=== PATIENT | female | born 1965 ===

== ENCOUNTER 2017-08-31 16:08 | Emergency (ER) | payer SELFPAY ==
[~2017-08-31] VITALS: Ht 167.6 cm; Wt 57.6 kg
[2017-08-31] MEDS ORDERED: BLOOD PRESSURE (16:15)
[2017-08-31] MEDS ORDERED: [UNRECOGNIZED DRUG - CODE] PO (16:15)
--- NOTE | 2017-08-31 16:17 | ER Report ---
History and Physical Time Seen By MD: 16:16 Hx. of Stated Complaint: fall HPI/ROS 52-year-old female states she was in a local store Water Fell onto Her Left Side and Fell with Her Right Arm behind Her Back Striking Her Head No Loss of Consciousness His Pain a Global Headache Neck Pain Pain in Her Left Upper Extremity Allergies: Coded Allergies: No Known Drug Allergies (Unverified , 08/31/17) Home Meds Active Scripts Hydrocodone Bit/Acetaminophen (NORCO 5-325 TABLET) 1 Each Tablet, 1 EACH PO Q4- 6H Y for PAIN, #20 TAB Prov:HENRY YUSUF 08/31/17 Reported Medications [Blood Pressure] No Conflict Check 08/31/17 Acetaminophen With Codeine # 4 (TYLENOL WITH CODEINE #4 TABLET) 1 Each Tablet, 1 EACH PO BID, TAB 08/31/17 Past Medical/Surgical History 52 year old female fell at the hardware store. no loc does have a headache, cervical pain, left arm landed behind her back, pain left shoulder, left elbow left hand and wrist. takes htn med took am dose bp 220/125 Reviewed Nurses Notes: Yes Old Medical Records Reviewed: No Exposure to Second Hand Smoke?: Yes Hx Substance Use Disorder: No Hx Alcohol Use: Yes Family History of: HTN, Other Constitutional Vital Sign - Last 24 Hours 08/31/17 08/31/17 08/31/17 08/31/17 16:13 16:15 16:16 16:23 Temp 97.8 Pulse 102 102 Resp 16 B/P (MAP) 221/119 (153) 207/125 207/125 (152) Pulse Ox 94 O2 Delivery Room Air 08/31/17 08/31/17 08/31/17 08/31/17 16:30 16:38 16:53 17:00 Pulse 95 91 B/P (MAP) 198/109 (138) 204/105 (138) Pulse Ox 96 97 08/31/17 08/31/17 08/31/17 08/31/17 17:08 17:13 17:28 17:30 Pulse 78 79 B/P (MAP) 186/136 (153) Pulse Ox 92 100 98 08/31/17 08/31/17 08/31/17 08/31/17 17:35 17:50 18:00 18:05 Pulse 76 85 71 B/P (MAP) 161/103 (122) Pulse Ox 95 97 94 08/31/17 08/31/17 18:20 18:30 Pulse 72 B/P (MAP) 147/105 (119) Pulse Ox 95 Physical Exam 52 year old female alert anxious, heent head normocephalic trauma left parietal aspenct of the head no swelling , neck pain left side with palpation refusing c collar, tm no hemotympanum, dillon, throat non reddened, no jvd, hrr, lungs cta, abd soft pelvis intact, extremitis pain in left arm from shoulder to fingers , able to move fingers cycle specialist intact Medical Decision Making Data Points Result Diagram: 08/31/17 1640 08/31/17 1640 Laboratory Hematology Test 08/31/17 16:40 Red Blood Count 5.08 M/uL (4.17-5.56) Mean Corpuscular Volume 84.6 fL (80.0-96.0) Mean Corpuscular Hemoglobin 29.3 pg (26.0-33.0) Mean Corpuscular Hemoglobin Concent 34.6 g/dL (32.0-36.0) Red Cell Distribution Width 15.5 % (11.5-14.5) Mean Platelet Volume 8.3 fL (7.2-11.1) Neutrophils (%) (Auto) 60.2 % (39.4-72.5) Lymphocytes (%) (Auto) 28.3 % (17.6-49.6) Monocytes (%) (Auto) 6.1 % (4.1-12.4) Eosinophils (%) (Auto) 4.9 % (0.4-6.7) Basophils (%) (Auto) 0.5 % (0.3-1.4) Nucleated RBC Relative Count (auto) 0.1 /100WBC Neutrophils # (Auto) 4.7 K/uL (2.0-7.4) Lymphocytes # (Auto) 2.2 K/uL (1.3-3.6) Monocytes # (Auto) 0.5 K/uL (0.3-1.0) Eosinophils # (Auto) 0.4 K/uL (0.0-0.5) Basophils # (Auto) 0.0 K/uL (0.0-0.1) Nucleated RBC Absolute Count (auto) 0.00 K/uL Sodium Level 139 mmol/L (137-145) Potassium Level 3.5 mmol/L (3.5-5.0) Chloride Level 101 mmol/L (98-107) Carbon Dioxide Level 27 mmol/L (22-31) Blood Urea Nitrogen 13 mg/dl (7-18) Creatinine 0.90 mg/dl (0.52-1.04) Glomerular Filtration Rate Calc > 60.0 Random Glucose 83 mg/dl (75-110) Calcium Level 10.0 mg/dl (8.4-10.2) Total Bilirubin 0.8 mg/dl (0.2-1.3) Aspartate Amino Transf (AST/SGOT) 41 U/L (0-35) Alanine Aminotransferase (ALT/SGPT) 67 U/L (0-56) Alkaline Phosphatase 80 U/L (0-126) Total Protein 8.2 gm/dl (6.3-8.2) Albumin 4.5 g/dl (3.5-5.0) Chemistry Test 08/31/17 16:40 White Blood Count 7.7 k/uL (4.5-11.0) Red Blood Count 5.08 M/uL (4.17-5.56) Hemoglobin 14.9 g/dL (12.0-16.0) Hematocrit 43.0 % (34.0-47.0) Mean Corpuscular Volume 84.6 fL (80.0-96.0) Mean Corpuscular Hemoglobin 29.3 pg (26.0-33.0) Mean Corpuscular Hemoglobin Concent 34.6 g/dL (32.0-36.0) Red Cell Distribution Width 15.5 % (11.5-14.5) Platelet Count 228 K/uL (150-450) Mean Platelet Volume 8.3 fL (7.2-11.1) Neutrophils (%) (Auto) 60.2 % (39.4-72.5) Lymphocytes (%) (Auto) 28.3 % (17.6-49.6) Monocytes (%) (Auto) 6.1 % (4.1-12.4) Eosinophils (%) (Auto) 4.9 % (0.4-6.7) Basophils (%) (Auto) 0.5 % (0.3-1.4) Nucleated RBC Relative Count (auto) 0.1 /100WBC Neutrophils # (Auto) 4.7 K/uL (2.0-7.4) Lymphocytes # (Auto) 2.2 K/uL (1.3-3.6) Monocytes # (Auto) 0.5 K/uL (0.3-1.0) Eosinophils # (Auto) 0.4 K/uL (0.0-0.5) Basophils # (Auto) 0.0 K/uL (0.0-0.1) Nucleated RBC Absolute Count (auto) 0.00 K/uL Glomerular Filtration Rate Calc > 60.0 Calcium Level 10.0 mg/dl (8.4-10.2) Total Bilirubin 0.8 mg/dl (0.2-1.3) Aspartate Amino Transf (AST/SGOT) 41 U/L (0-35) Alanine Aminotransferase (ALT/SGPT) 67 U/L (0-56) Alkaline Phosphatase 80 U/L (0-126) Total Protein 8.2 gm/dl (6.3-8.2) Albumin 4.5 g/dl (3.5-5.0) ED Course/Re-evaluation ED Course possible ulnar styloid fracture refuses arm splint will wear wrist splint, and sling and have placed these . cms intact will see pcp in [place] for further care Re-evaluation feels better after pain med splinted bp 156/95. Decision to Disposition Date: Aug 31, 2017 Decision to Disposition Time: 18:38 Depart Departure Latest Vital Signs Vital Signs Date Time Temp Pulse Resp B/P (MAP) Pulse Ox O2 Delivery O2 Flow Rate FiO2 08/31/17 18:30 147/105 (119) 08/31/17 18:20 72 95 08/31/17 16:15 97.8 16 Room Air Impression: Primary Impression: Fall Additional Impression: Wrist fracture, left Condition: Improved Disposition: HOME OR SELF-CARE New Scripts Hydrocodone Bit/Acetaminophen (NORCO 5-325 TABLET) 1 Each Tablet 1 EACH PO Q4-6H Y for PAIN, #20 TAB Prov: HENRY YUSUF 08/31/17 Patient Instructions: Fall Prevention (ED), Wrist Fracture in Adults (DC) Additional Instructions: See her doctor in [place] for your blood pressure when you return wear wrist splint and sling can use ice on your wrist 20 minutes 4 times a day follow-up with your primary care physician in [place] for possible radial styloid fracture Problem Qualifiers HENRY YUSUF Aug 31, 2017 16:17
[2017-08-31] MEDS ORDERED: cloNIDine HCL 0.1 MG TAB PO ONE (16:25)
[2017-08-31] MEDS ORDERED: NS(*) 0.9% 1000 ML BAG 1,000 ML IV ONE (16:26)
[2017-08-31] MEDS ORDERED: ONDANSETRON 4 MG/2 ML VIAL IVP ONE (16:30)
[2017-08-31] MEDS ORDERED: fentaNYL CITR 100 MCG/2 ML AMP IVP ONE (16:30)
[2017-08-31 16:58] LABS: PLATELET COUNT, AUTOMATED 228 K/uL (150-450)
--- NOTE | 2017-08-31 17:05 | EKG ---
FACILITY: [facility] PATIENT NAME: ISABEL COTO : [id number] MR: [id number] V: [id number] EXAM DATE: ORDERING PHYSICIAN: HENRY YUSUF TECHNOLOGIST: KENTRELL Test Reason : HTN, FALL Blood Pressure : / mmHG Vent. Rate : 095 BPM Atrial Rate : 095 BPM P-R Int : 132 ms QRS Dur : 090 ms QT Int : 368 ms P-R-T Axes : 073 020 066 degrees QTc Int : 462 ms Normal sinus rhythm Normal ECG No previous ECGs available Confirmed by GARCIA JEAN BAPTISTE ([id number]) on 08/31/2017 5:25:47 PM Referred By: CORINNA Confirmed By:GARCIA JEAN BAPTISTE
--- NOTE | 2017-08-31 17:49 | RADIOLOGY IMAGING REPORT ---
FACILITY: [facility] PATIENT NAME: Candice Meadows : 1965 MR: [id number] V: [id number] EXAM DATE: ORDERING PHYSICIAN: HENRY YUSUF TECHNOLOGIST: Location: [facility] [place] Patient: Candice Meadows : 1965 Visit/Account:[id number] Date of Sevice: 08/31/2017 Exam type: SHOULDER MIN 2 VIEWS LEFT History: Follow-up left arm, pain from wrist to shoulder Comparison: None. Findings: Two views of the left shoulder reveal no evidence of acute fracture or dislocation or significant art hritic change. There are mild degenerative changes at the left AC joint. IMPRESSION: 1. No acute osteoarticular abnormality of the left shoulder seen Report Dictated By: Chrissie Goetz MD at 08/31/2017 5:44 PM Report E-Signed By: Chrissie Goetz MD at 08/31/2017 5:45 PM WSN:[email or web address]
--- NOTE | 2017-08-31 17:50 | RADIOLOGY IMAGING REPORT ---
FACILITY: [facility] PATIENT NAME: Candice Meadows : 1965 MR: [id number] V: [id number] EXAM DATE: ORDERING PHYSICIAN: HENRY YUSUF TECHNOLOGIST: Location: [facility] Patient: Candice Meadows : 1965 Visit/Account:[id number] Date of Sevice: 08/31/2017 Exam type: FOREARM LEFT History: Fell on left arm, pain from wrist to shoulder Comparison: None. Findings: Two views of the left forearm reveal no evidence of acute fracture or dislocation. There are mild de generative changes at the right radiocarpal joint IMPRESSION: 1. Mild degenerative changes at the right radiocarpal joint although no evidence of acute fracture-d islocation involving the right forearm Report Dictated By: Chrissie Goetz MD at 08/31/2017 5:45 PM Report E-Signed By: Chrissie Goetz MD at 08/31/2017 5:46 PM WSN:[email or web address]
--- NOTE | 2017-08-31 17:53 | RADIOLOGY IMAGING REPORT ---
FACILITY: [facility] PATIENT NAME: Candice Meadows : 1965 MR: [id number] V: [id number] EXAM DATE: ORDERING PHYSICIAN: HENRY YUSUF TECHNOLOGIST: Location: [facility] - [place] Patient: Candice Meadows : 1965 Visit/Account:[id number] Date of Sevice: 08/31/2017 Exam type: WRIST LEFT MIN 3 VIEW History: fall Comparison: None. Findings: Three views of the left wrist reveal mild degenerative changes at the left radiocarpal joint. There is no evidence of acute fracture or dislocation. IMPRESSION: 1. No evidence of acute fracture or dislocation involving the left wrist patient's symptoms persist follow-up imaging recommended to exclude an occult fracture Report Dictated By: Chrissie Goetz MD at 08/31/2017 5:46 PM Report E-Signed By: Chrissie Goetz MD at 08/31/2017 5:48 PM WSN:[email or web address]
--- NOTE | 2017-08-31 17:55 | RADIOLOGY IMAGING REPORT ---
FACILITY: [facility] [place] PATIENT NAME: Candice Meadows : 1965 MR: [id number] V: [id number] EXAM DATE: ORDERING PHYSICIAN: HENRY YUSUF TECHNOLOGIST: Location: [facility] [place] Patient: Candice Meadows : 1965 Visit/Account:[id number] Date of Sevice: 08/31/2017 Exam type: ELBOW 3 VIEW LEFT History: fall Comparison: None. Findings: Three views of the left elbow reveal no evidence of acute fracture dislocation or significant arthrit ic change. IMPRESSION: 1. No acute osteoarticular abnormality of the left elbow is seen Report Dictated By: Chrissie Goetz MD at 08/31/2017 5:50 PM Report E-Signed By: Chrissie Goetz MD at 08/31/2017 5:51 PM WSN:[email or web address]
--- NOTE | 2017-08-31 17:57 | RADIOLOGY IMAGING REPORT ---
FACILITY: [facility] PATIENT NAME: Candice Meadows : 1965 MR: [id number] V: [id number] EXAM DATE: ORDERING PHYSICIAN: HENRY YUSUF TECHNOLOGIST: Location: [facility] Patient: Candice Meadows : 1965 Visit/Account:[id number] Date of Sevice: 08/31/2017 Exam type: HAND COMPLETE LEFT History: fall Comparison: None. Findings: There is a tiny bony density projecting just distal to the radial styloid which could be a peritendin ous calcification although a tiny avulsion fracture fragment is not totally ruled out. Otherwise no evidence of acute fracture station involving the left hand is identified. If symptoms persist follow -up imaging recommended to exclude an occult fracture IMPRESSION: 1. There is a tiny bony density projecting just distal to the left radial styloid which could repres ent a peritendinous calcification although a tiny avulsion fracture fragment not totally excluded. Report Dictated By: Chrissie Goetz MD at 08/31/2017 5:51 PM Report E-Signed By: Chrissie Goetz MD at 08/31/2017 5:53 PM WSN:[email or web address]
--- NOTE | 2017-08-31 18:00 | RADIOLOGY IMAGING REPORT ---
FACILITY: [facility] PATIENT NAME: Candice Meadows : 1965 MR: [id number] V: [id number] EXAM DATE: ORDERING PHYSICIAN: HENRY YUSUF TECHNOLOGIST: Location: [facility] - [place] Patient: Candice Meadows : 1965 Visit/Account:[id number] Date of Sevice: 08/31/2017 EXAMINATION: Head CT without intravenous contrast HISTORY: Trauma TECHNIQUE: Contiguous axial images were obtained from the skull base to the vertex without intraven ous contrast. Sagittal and coronal reformatted images are also submitted. Dose Lowering Technique One of the following dose optimization techniques was utilized in the performance of this exam: Autom ated exposure control; adjustment of the mA and/or kV according to the patient's size; or use of an i terative reconstruction technique. Specific details can be referenced in the facility's radiology C T exam operational policy. COMPARISON: None. FINDINGS: Brain volume: Normal. Ventricles: Normal. Acute ischemic changes: None. Hemorrhage: None. Masses / edema: None. Peña-white: Negative. White matter: Normal. Vessels: Negative. Extra-axial: Negative. Calvarium / scalp: Negative. Skull base / visualized face: Negative. Visualized sinuses / orbits: Negative. IMPRESSION: Normal noncontrast head CT without evidence of mass lesion, acute infarct or hemorrhage. Report Dictated By: Chrissie Goetz MD at 08/31/2017 5:53 PM Report E-Signed By: Chrissie Goetz MD at 08/31/2017 5:56 PM WSN:[email or web address]
--- NOTE | 2017-08-31 18:07 | RADIOLOGY IMAGING REPORT ---
FACILITY: [facility] PATIENT NAME: Candice Meadows : 1965 MR: [id number] V: [id number] EXAM DATE: ORDERING PHYSICIAN: HENRY YUSUF TECHNOLOGIST: Location: [facility] Patient: Candice Meadows : 1965 Visit/Account:[id number] Date of Sevice: 08/31/2017 Exam type: C-SPINE W/O CONTRAST History: TRAUMA Comparison: None. TECHNIQUE: Multiple axial images were obtained through the cervical spine without contrast. Coronal and sagittal real admissions were performed. Dose Lowering Technique One of the following dose optimization techniques was utilized in the performance of this exam: Autom ated exposure control; adjustment of the mA and/or kV according to the patient's size; or use of an i terative reconstruction technique. Specific details can be referenced in the facility's radiology C T exam operational policy. Findings: There is no evidence of acute fractures or subluxations in the cervical spine The level of C4-5 there is mild disc space narrowing with small anterior osteophytes and mild uncover tebral spurring bilaterally there also appears to be a small central disc bulge/protrusion. The level of C5-6 there is mild disc space narrowing no significant foraminal narrowing. Suggestion of a small central disc bulge. The level of C6-7 there is suggestion of a broad-based disc bulge. There is no evidence of prevertebral soft tissue swelling. There is mild biapical pleural thickening IMPRESSION: 1. Mild spondylotic changes of the cervical spine although no evidence of acute fractures or subluxa tions Report Dictated By: Chrissie Goetz MD at 08/31/2017 5:56 PM Report E-Signed By: Chrissie Goetz MD at 08/31/2017 6:02 PM WSN:[email or web address]
[2017-08-31] MEDS ORDERED: HYDR-4309 PO (18:26)
[2017-08-31 18:30] VITALS: BP 147/105
== END 2017-08-31 18:35 | disposition home or self-care (01) ==
LOC: ER 16:13
DX: S62.102A Fracture of unspecified carpal bone, left wrist, initial encounter for closed fracture (principal); W01.0XXA Fall on same level from slipping, tripping and stumbling without subsequent striking against object, initial encounter; Y92.512 Supermarket, store or market as the place of occurrence of the external cause
CPT/HCPCS: 70450; 72125; 73030; 73080; 73090; 73110; 73130; 85025; 93005; 96361; 96374; 96375; 99284; A4565; J2405; J3010; J7030; L3908; 82040; 82247; 82310; 82374; 82435; 82565; 82947; 84075; 84132; 84155; 84295; 84450; 84460; 84520